=== PATIENT | female | born 1960 | race Caucasian/White ===

== ENCOUNTER 2018-01-17 09:35 | Emergency (ER) | payer OTHER ==
[~2018-01-17] VITALS: Ht 160 cm; Wt 86.2 kg
[~2018-01-17 09:35] MED LIST: LISINOPRIL5 MG; PREVACID30 MG; SYNTHROID50 MCG
== END 2018-01-17 12:31 | disposition home or self-care (01) ==
LOC: ER 09:35
DX: M62.838 Other muscle spasm (principal)

== ENCOUNTER 2018-08-30 07:00 | Day surgery (SDC) | payer OTHER ==
[~2018-08-30 07:00] MED LIST changes: +CRESTOR40 MG PO; +LANZOPRAZOLE PO; +SYNTH PO; +ZANTAC300 MG PO
== END 2018-08-30 14:25 | disposition home or self-care (01) ==
LOC: CIR.AMB 07:00
DX: D24.2 Benign neoplasm of left breast (principal)

== ENCOUNTER 2018-09-19 08:55 | Outpatient (CLI) | payer OTHER | END 2018-09-19 09:19 | disposition home or self-care (01) | LOC: NUCLEAR 08:55 | DX: I87.2 Venous insufficiency (chronic) (peripheral) (principal); I70.213 Atherosclerosis of native arteries of extremities with intermittent claudication, bilateral legs ==

== ENCOUNTER → 2018-09-20 | Outpatient (CLI) | payer OTHER | END | disposition home or self-care (01) | LOC: NUCLEAR 14:36 | DX: I87.2 Venous insufficiency (chronic) (peripheral) (principal); I70.213 Atherosclerosis of native arteries of extremities with intermittent claudication, bilateral legs ==

== ENCOUNTER 2019-02-16 14:18 | Emergency (ER) | payer OTHER ==
[~2019-02-16] VITALS: Ht 160 cm; Wt 81.6 kg
== END 2019-02-16 19:16 | disposition home or self-care (01) ==
LOC: ER 14:18
DX: J06.9 Acute upper respiratory infection, unspecified (principal)

== ENCOUNTER 2019-11-14 07:00 | Day surgery (SDC) | payer OTHER ==
[~2019-11-14 07:00] MED LIST changes: +DEXILANT60 MG PO; +SINGULAIR 10MG10 MG PO
== END 2019-11-14 19:15 | disposition home or self-care (01) ==
LOC: CIR.AMB 07:00
PROVIDERS: ATTEND Surgery
DX: D24.1 Benign neoplasm of right breast (principal)

== ENCOUNTER 2022-06-13 09:55 | Outpatient (CLI) | payer OTHER | END 2022-06-13 10:03 | disposition home or self-care (01) | LOC: TOM 09:55 | PROVIDERS: ATTEND Specialist | DX: K43.2 Incisional hernia without obstruction or gangrene (principal) ==

== ENCOUNTER 2022-08-03 10:25 | Emergency (ER) | payer OTHER ==
[~2022-08-03] VITALS: Ht 157.5 cm; Wt 80.7 kg
[2022-08-03] MEDS ORDERED: CRESTOR5 MG (10:37)
[2022-08-03] MEDS ORDERED: DEXILANT60 MG (10:37)
[2022-08-03] MEDS ORDERED: ZESTRIL10 M1 (10:38)
== END 2022-08-03 14:42 | disposition home or self-care (01) ==
LOC: ER 10:25
DX: I10 Essential (primary) hypertension (principal); R20.2 Paresthesia of skin; Z88.6 Allergy status to analgesic agent; J45.909 Unspecified asthma, uncomplicated; E78.00 Pure hypercholesterolemia, unspecified

== ENCOUNTER 2023-11-08 05:48 | Day surgery (SDC) | payer OTHER ==
[~2023-11-08] VITALS: Ht 160 cm; Wt 79.4 kg
[~2023-11-08 05:48] MED LIST changes: +CHILDREN'S ASPI81 MG PO; +COZAAR50 MG PO; +CRESTOR5 MG; +DEXILANT60 MG; +LEVOTHYROXINE25 MCG PO; +ZESTRIL10 M1; +ZETIA10 MG PO
[2023-11-08] MEDS ORDERED: DIBUCAINE 30 GM TUBE ONE (07:31)
[2023-11-08] MEDS ORDERED: LIDOCAINE HCL 1%/EPINEPHRINE 20ML VIAL IJ ONE (07:32)
[2023-11-08] MEDS ORDERED: HEMOSTATIC MATRIX 1 KIT KIT TOP ONE (07:32)
[2023-11-08] MEDS ORDERED: ERTAPENEM SODIUM 1,000 MG VIAL ONE (07:32)
[2023-11-08] MEDS ORDERED: BUPIVACAINE HCL/Mpf 0.5% 10ML VIAL ONE (07:32)
[2023-11-08] MEDS ORDERED: POVIDONE-IODINE 118 ML BOTT TOP ONE (07:32)
[2023-11-08] MEDS ORDERED: BUPIVACAINE LIPOSOME/PF 266 MG/20 ML VIAL IJ ONE (07:42)
[2023-11-08] MEDS ORDERED: BUPIVACAINE LIPOSOME/PF 266 MG/20 ML VIAL IJ SCH (08:30)
[2023-11-08] MEDS ORDERED: BUPIVACAINE HCL 30 ML VIAL IJ SCH (08:30)
[2023-11-08] MEDS ORDERED: DIBUCAINE 30 GM TUBE RECTAL SCH (08:30)
[2023-11-08] MEDS ORDERED: ERTAPENEM SODIUM 1,000 MG VIAL IV SCH (08:30)
[2023-11-08] MEDS ORDERED: HEMOSTATIC MATRIX 1 KIT KIT TOP SCH (08:30)
[2023-11-08] MEDS ORDERED: POVIDONE-IODINE 118 ML BOTT TOP SCH (08:30)
[2023-11-08] MEDS ORDERED: TAMSULOSIN HCL 0.4 MG CAP PO ONE ×2 (08:45→11:40)
[2023-11-08] MEDS ORDERED: OXYC1TAB9 PO (08:57)
== END 2023-11-08 13:20 | disposition home or self-care (01) ==
LOC: CIR.AMB 05:48
PROVIDERS: ATTEND Surgery
DX: K64.2 Third degree hemorrhoids (principal); K64.8 Other hemorrhoids; K64.4 Residual hemorrhoidal skin tags; K60.1 Chronic anal fissure; K62.89 Other specified diseases of anus and rectum; K62.5 Hemorrhage of anus and rectum; R19.7 Diarrhea, unspecified; I10 Essential (primary) hypertension; E03.9 Hypothyroidism, unspecified; M19.90 Unspecified osteoarthritis, unspecified site; K59.00 Constipation, unspecified